=== PATIENT | male | born 1955 | race African-American/Black ===

== ENCOUNTER → 2016-08-12 | Outpatient (CLI) | payer OTHER ==
--- NOTE | 2016-08-12 15:22 | CARD ---
APPROVED REPORT EXAM: Two-dimensional and M-mode echocardiogram with Doppler and color Doppler. Other Information Quality : Good INDICATION ICD: Cardiomyopathy 2D DIMENSIONS RVDd3.6 (2.9-3.5cm)Left Atrium(2D)4.1 (1.6-4.0cm) IVSd0.8 (0.7-1.1cm)Aortic Root(2D)2.9 (2.0-3.7cm) LVDd5.7 (3.9-5.9cm)LVOT Diameter2.4 (1.8-2.4cm) PWd0.9 (0.7-1.1cm)LVDs4.4 (2.5-4.0cm) FS (%) 20.0 %SV74.0 ml LVEF(%)40.0 (>50%) Aortic Valve AoV Peak Gonzalo.109.2cm/sAoV VTI20.7cm AO Peak GR.4.8mmHgLVOT Peak Gonzalo.96.4cm/s LVOT VTI 18.81cmAO Mean GR.3mmHg SABRINA (VMAX)3.58vo3BYX (VTI)3.96cm2 Mitral Valve MV E Rwvznrbc90.9cm/sMV DECEL WUAL471fg MV A Mzinclwv60.4cm/sE/A Ratio0.8 Tricuspid Valve TR P. Ffwzltqj521mw/sRAP ZFAPGGHN1joJe TR Peak Gr.20fhLeZMCC57ygCx LEFT VENTRICLE The left ventricle is normal size. There is normal left ventricular wall thickness. Severe left ventr icular systolic dysfunction. The Ejection Fraction is 25-30%. There is akinesis in the apex, mid to d istal septal and distal lateral couch. Transmitral Doppler flow pattern is Grade I-abnormal relaxatio n pattern. RIGHT VENTRICLE The right ventricle is mildly dilated. The right ventricular systolic function is normal. There is a pacemaker/ICD lead in the right ventricle. ATRIA The left atrium is mildly dilated. The right atrium is mildly dilated. A pacemaker/ICD is seen in the right atrium consistent with history. The interatrial septum is intact with no evidence for an atria l septal defect or patent foramen ovale as noted on 2-D or Doppler imaging. AORTIC VALVE The aortic valve is calcified but opens well. Doppler and Color Flow revealed no significant aortic r egurgitation. There is no significant aortic valvular stenosis. MITRAL VALVE The mitral valve is normal in structure and function. There is no evidence of mitral valve prolapse. There is no mitral valve stenosis. Doppler and Color-flow revealed mild mitral regurgitation. TRICUSPID VALVE The tricuspid valve is normal in structure and function. Doppler and Color Flow revealed mild to mode rate tricuspid regurgitation. There is no pulmonary hypertension. The PA pressure was estimated at 26 mmHg. There is no tricuspid valve stenosis. PULMONIC VALVE The pulmonary valve is normal in structure and function. Doppler and Color Flow revealed no pulmonic valvular regurgitation. There is no pulmonic valvular stenosis. GREAT VESSELS The aortic root is normal in size. The ascending aorta is normal in size. The IVC is normal in size a nd collapses >50% with inspiration. PERICARDIAL EFFUSION There is no evidence of significant pericardial effusion. Critical Notification Critical Value: No <Conclusion> Severe left ventricular systolic dysfunction. The Ejection Fraction is 25-30%. Transmitral Doppler flow pattern is Grade I-abnormal relaxation pattern. A pacemaker/ICD is seen in the right atrium consistent with history. Mild mitral regurgitation. Mild to moderate tricuspid regurgitation. There is no evidence of significant pericardial effusion.
== END | disposition home or self-care (01) ==
LOC: ECHO 07:56
PROVIDERS: ATTEND Internal Medicine Cardiovascular Disease
DX: I08.1 Rheumatic disorders of both mitral and tricuspid valves (principal); I25.5 Ischemic cardiomyopathy
CPT/HCPCS: 93306

== ENCOUNTER → 2018-10-05 | Outpatient (CLI) | payer OTHER ==
--- NOTE | 2018-10-05 17:41 | CARD ---
MR#: [id number] Date of Study: 10/05/2018 Ordering Physician: LUISA STONER, Referring Physician: LUISA STONER, Tech: Kaity Aguirre APPROVED REPORT EXAM: Two-dimensional and M-mode echocardiogram with Doppler and color Doppler. Other Information Quality : AverageHR: 65bpm Rhythm : Pacemaker INDICATION Cardiomyopathy Surgery/Intervention Pacemaker: Date: 2012 CABG: Date: 2011 RISK FACTORS Hyperlipidemia 2D DIMENSIONS Left Atrium(2D)4.8 (1.6-4.0cm)IVSd1.3 (0.7-1.1cm) Aortic Root(2D)3.1 (2.0-3.7cm)LVDd6.7 (3.9-5.9cm) LVOT Diameter2.2 (1.8-2.4cm)PWd1.0 (0.7-1.1cm) LVDs4.7 (2.5-4.0cm)FS (%) 30.5 % SV133.2 mlLVEF(%)56.6 (>50%) Aortic Valve AoV Peak Gonzalo.132.8cm/sAoV VTI28.3cm AO Peak GR.7.1mmHgLVOT Peak Gonzalo.109.2cm/s LVOT VTI 23.52cmAO Mean GR.4mmHg SABRINA (VMAX)3.62ym8AQR (VTI)3.07cm2 Mitral Valve MV E Xrdymzxm64.2cm/sMV DECEL IUGO359gv MV A Utlcxtps83.8cm/sE/A Ratio1.2 Pulmonary Valve PV Peak Gebyvxhs068.6cm/sPV Peak Grad.6mmHg Tricuspid Valve TR P. Ocjyjzqu368on/sRAP HOOOUCPY5hhBb TR Peak Gr.98bmWwQLOH42syAd Pulmonary Vein S1 Oinnwreo80.7cm/sD2 Hcgwtfhg84.4cm/s LEFT VENTRICLE The Left Ventricle is moderately dilated. There is mild to moderate concentric left ventricular hyper trophy. The systolic function is moderately impaired. EF 30-35% There is global hypokinesis of the le ft ventricle. Septal motion suggestive of conduction defect. Transmitral Doppler flow pattern is Grad e II-pseudonormal filling dynamics. RIGHT VENTRICLE The right ventricle is normal size. There is normal right ventricular wall thickness. The right ventr icular systolic function is normal. Pacer/ICD lead noted in the RV/RA ATRIA The left atrium is borderline dilated. The right atrium size is normal. There is a pacemaker lead see n in the right atrium. The interatrial septum is intact with no evidence for an atrial septal defect or patent foramen ovale as noted on 2-D or Doppler imaging. AORTIC VALVE The aortic valve is normal in structure and function. Doppler and Color Flow revealed no significant aortic regurgitation. There is no significant aortic valvular stenosis. MITRAL VALVE The mitral valve is normal in structure and function. There is no evidence of mitral valve prolapse. There is no mitral valve stenosis. Doppler and Color-flow revealed trace to mild mitral regurgitation . TRICUSPID VALVE The tricuspid valve is normal in structure and function. Doppler and Color Flow revealed trace to mil d tricuspid regurgitation with an estimated PAP of 26 mmHg. There is no tricuspid valve stenosis. PULMONIC VALVE Doppler and Color Flow revealed trace pulmonic valvular regurgitation. There is no pulmonic valvular stenosis. GREAT VESSELS The aortic root is normal in size. The IVC was not well visualized. PERICARDIAL EFFUSION There is no evidence of significant pericardial effusion. Critical Notification Critical Value: No <Conclusion> The Left Ventricle is moderately dilated. The systolic function is moderately impaired. EF 30-35% There is global hypokinesis of the left ventricle. Septal motion suggestive of conduction defect. Pacer/ICD lead noted in the RV/RA Signed by : Vincent Cosby, Electronically Approved : 10/05/2018 17:40:32
== END | disposition home or self-care (01) ==
LOC: ECHO 13:39
PROVIDERS: ATTEND Internal Medicine Cardiovascular Disease
DX: I08.1 Rheumatic disorders of both mitral and tricuspid valves (principal); I25.5 Ischemic cardiomyopathy; E78.5 Hyperlipidemia, unspecified
CPT/HCPCS: 93306

== ENCOUNTER 2019-09-27 23:29 | Observation (INO) | payer OTHER ==
[~2019-09-27] VITALS: Ht 175.3 cm; Wt 85.2 kg
--- NOTE | 2019-09-27 23:40 | PHYS DOC ---
Past History Past Medical History: CAD Past Surgical History Bypass surgery in 2012, AICD pacer Smoking: Non-smoker Alcohol Use: Rarely Drug Use: None General Adult EDM: Chief Complaint: CHEST PAIN HPI: HPI: Patient is a 64 year old male who presents for evaluation of chest pain and chest pressure that started 30 minutes prior to arrival at rest. He had some shortness of air as well. Local EMS brought patient in and he was given a full dose aspirin prior to arrival. Shortly after arrival he was chest pain-free. Patient does have history of heart disease. Patient had open heart surgery in [address] [facility]. Arroyo is his surgeon. Patient denied complaints of shortness of air, sweats or other findings Review of Systems: Review of Systems: Constitutional: Denies fever or chills Eyes: Denies change in visual acuity HENT: Denies nasal congestion or sore throat Respiratory: Denies cough or shortness of breath Cardiovascular: Has chest pain but no edema GI: Denies abdominal pain, nausea, vomiting, bloody stools or diarrhea : Denies dysuria Musculoskeletal: Denies back pain or joint pain Integument: Denies rash Neurologic: Denies headache, focal weakness or sensory changes Endocrine: Denies polyuria or polydipsia Lymphatic: Denies swollen glands Psychiatric: Denies depression or anxiety Heart Score: Risk Factors: Risk Factors: DM, Current or recent (<one month) smoker, HTN, HLP, family history of CAD, obesity. Risk Scores: Score 0 - 3: 2.5% MACE over next 6 weeks - Discharge Home Score 4 - 6: 20.3% MACE over next 6 weeks - Admit for Clinical Observation Score 7 - 10: 72.7% MACE over next 6 weeks - Early Invasive Strategies Physical Exam: PE: Constitutional: Well developed, well nourished, moderate distress. [] HENT: Normocephalic, atraumatic, bilateral external ears normal, oropharynx moist, no oral exudates, nose normal. [] Eyes: PERRL, EOMI, conjunctiva normal, no discharge. [] Neck: Normal range of motion, no tenderness, supple, no stridor. [] Cardiovascular:Heart rate regular rhythm, murmur [] Lungs & Thorax: Bilateral breath sounds clear to auscultation [] Abdomen: Bowel sounds normal, soft, no tenderness, no masses, no pulsatile masses. [] Skin: Warm, dry, no erythema, no rash. [] Back: No tenderness. [] Extremities: No tenderness, no cyanosis, no clubbing, ROM intact, no edema. [] Neurologic: Alert and oriented X 3, normal motor function, normal sensory function, no focal deficits noted. [] Psychologic: Affect normal, judgement normal, mood normal. [] Current Patient Data: Labs: Laboratory Tests Test 09/27/19 23:33 White Blood Count 4.2 x10^3/uL Red Blood Count 4.20 x10^6/uL Hemoglobin 13.7 g/dL Hematocrit 40.9 % Mean Corpuscular Volume 97 fL Mean Corpuscular Hemoglobin 33 pg Mean Corpuscular Hemoglobin Concent 34 g/dL Red Cell Distribution Width 13.6 % Platelet Count 170 x10^3/uL Neutrophils (%) (Auto) 40 % Lymphocytes (%) (Auto) 45 % Monocytes (%) (Auto) 10 % Eosinophils (%) (Auto) 4 % Basophils (%) (Auto) 1 % Neutrophils # (Auto) 1.7 x10^3uL Lymphocytes # (Auto) 1.9 x10^3/uL Monocytes # (Auto) 0.4 x10^3/uL Eosinophils # (Auto) 0.2 x10^3/uL Basophils # (Auto) 0.0 x10^3/uL Sodium Level 141 mmol/L Potassium Level 3.9 mmol/L Chloride Level 104 mmol/L Carbon Dioxide Level 27 mmol/L Anion Gap 10 Blood Urea Nitrogen 18 mg/dL Creatinine 1.2 mg/dL Estimated GFR (Cockcroft-Gault) 73.8 BUN/Creatinine Ratio 15 Glucose Level 153 mg/dL Calcium Level 8.8 mg/dL Total Bilirubin 0.6 mg/dL Aspartate Amino Transf (AST/SGOT) 136 U/L Alanine Aminotransferase (ALT/SGPT) 89 U/L Alkaline Phosphatase 78 U/L Troponin I Quantitative < 0.017 ng/mL Total Protein 7.3 g/dL Albumin 3.7 g/dL Albumin/Globulin Ratio 1.0 EKG: EKG: EKG was read at 2334 showed sinus rhythm rate 85, some ST segment elevation in the anterior leads with inverted T waves in the lateral leads. Looking for old EKG now for comparison 2341 old EKG not available from 03/16/2018. The elevations in V2 and V3 and the lateral inversions in 1, aVL, V4 V5 and V6 are old. Patient does not have an obvious STEMI today [] Radiology/Procedures: Radiology/Procedures: CXR read by me showed no acute findings.[] [address] [address] IMAGING REPORT Signed PATIENT: ROBBY INMAN ACCOUNT: [id number] : 1955 LOCATION: ER AGE: 64 SEX: M EXAM STATUS: REG ER ORD. PHYSICIAN: ANTONIA HAGER DO REASON: chest pain PROCEDURE: PORTABLE CHEST 1V EXAM: CHEST ONE VIEW. HISTORY: Chest pain. COMPARISON: 07/01/11. FINDINGS: A frontal view of the chest is obtained. There are changes of coronary artery bypass grafting. A left-sided pacer/defibrillator has its leads in the right atrium and right ventricle. There are no confluent infiltrates. There is no pneumothorax or pleural effusion. The heart is mildly enlarged. IMPRESSION: 1. Mild cardiomegaly. Electronically signed by: Car Mondragon MD (09/28/2019 1:17 AM) [facility] DICTATED AND SIGNED BY: LIZZ MONDRAGON MD DATE: 09/28/19116 CC: ROLAND LOGAN; ANTONIA HAGER DO ~ Course & Med Decision Making: Course & Med Decision Making Pertinent Labs and Imaging studies reviewed. (See chart for details) [] Dragon Disclaimer: Dragon Disclaimer: This electronic medical record was generated, in whole or in part, using a voice recognition dictation system. 0120 chest pain-free at this time. Case was discussed with Dr. Wang the hospitalist long chain quiller tender. Will admit here for observation to this facility and get cardiology consult in the morning. Initial troponin and EKG were unremarkable. Departure Departure: Impression: Primary Impression: Precordial chest pain Disposition: ADMITTED INPATIENT Admitting Physician: Kenrick Wang Condition: STABLE Referrals: ROLAND LOGAN (PCP) Justification of Admission: Justification of Admission: Justification of Admission Dx: Yes Angina: Symp at Rest ANTONIA HAGER DO Sep 27, 2019 23:40
--- NOTE | 2019-09-27 23:42 | EKG ---
[address] [address] Test Date: 2019-09-27 Test Time: 23:31:33 Pat Name: ROBBY INMAN Department: Room: Gender: M Heat Treat Technician: : 1955 Requested By: ANTONIA HAGER Order Number: [id number] Reading MD: Measurements Intervals [place] Rate: 85 P: -1 [place]: 136 QRS: 52 QRSD: 108 T: 103 QT: 372 QTc: 448 Interpretive Statements SINUS RHYTHM LEFT ATRIAL ABNORMALITY R-S TRANSITION ZONE IN V LEADS DISPLACED TO THE LEFT LOW LIMB LEAD VOLTAGE T ABNORMALITY IN ANTEROLATERAL LEADS ABNORMAL ECG RI6.02 No previous ECG available for comparison
[2019-09-27 23:50] LABS: BASO % 1 % (0-3); EOS # 0.2 x10^3/uL (0.0-0.7); EOS % 4 % (0-3); HEMATOCRIT 40.9 % (39.0-53.0); HEMOGLOBIN 13.7 g/dL (13.0-17.5); LYMPH # 1.9 x10^3/uL (1.0-4.8); LYMPH % 45 % (24-48); MEAN CORPUSCULAR HEMOGLOBIN 33 pg (25-35); MEAN CORPUSCULAR HGB CONC 34 g/dL (31-37); MEAN CORPUSCULAR VOLUME 97 fL (79-100); MONO # 0.4 x10^3/uL (0.0-1.1); MONO % 10 % (0-9); NEUT # 1.7 x10^3uL (1.8-7.7); NEUT % 40 % (31-73); PLATELET COUNT 170 x10^3/uL (140-400); RED CELL DISTRIBUTION WIDTH 13.6 % (11.5-14.5); WHITE BLOOD COUNT 4.2 x10^3/uL (4.0-11.0)
[2019-09-28] LABS: CALCIUM 8.8 mg/dL (8.5-10.1); CREATININE 1.2 mg/dL (0.7-1.3); GFR 73.8; POTASSIUM 3.9 mmol/L (3.5-5.1)
[2019-09-28 00:05] LABS: ALBUMIN 3.7 g/dL (3.4-5.0); TOTAL BILIRUBIN 0.6 mg/dL (0.2-1.0); TOTAL PROTEIN 7.3 g/dL (6.4-8.2)
--- NOTE | 2019-09-28 01:19 | RAD ---
EXAM: CHEST ONE VIEW. HISTORY: Chest pain. COMPARISON: 07/01/11. FINDINGS: A frontal view of the chest is obtained. There are changes of coronary artery bypass grafting. A left-sided pacer/defibrillator has its leads in the right atrium and right ventricle. There are no confluent infiltrates. There is no pneumothorax or pleural effusion. The heart is mildly enlarged. IMPRESSION: 1. Mild cardiomegaly. Electronically signed by: Car Mondragon MD (09/28/2019 1:17 AM) [facility]
[2019-09-28] MEDS ORDERED: ONDANSETRON PF 4 MG/2 ML VIAL. IVP PRN (01:45)
[2019-09-28 02:56] VITALS: BP 118/77
[2019-09-28] MEDS ORDERED: ASPI81TA59 PO (03:49)
[2019-09-28] MEDS ORDERED: POTA10TA32 PO (03:49)
[2019-09-28] MEDS ORDERED: DILT120C93 PO (03:49)
[2019-09-28] MEDS ORDERED: METO-239 PO (03:49)
[2019-09-28] MEDS ORDERED: ATOR20TA58 PO (03:49)
[2019-09-28] MEDS ORDERED: FURO40TA4 PO (03:49)
[2019-09-28] MEDS ORDERED: SILD100T59 PO (03:49)
[2019-09-28] MEDS ORDERED: AZEL137S3 NAS (03:49)
[2019-09-28] MEDS ORDERED: FEXO180T16 PO (03:49)
[2019-09-28] MEDS ORDERED: MORPHINE SULFATE 2 MG/ML DISP.SYRIN. IV PRN (04:00)
[2019-09-28 05:15] VITALS: BP 117/72
--- NOTE | 2019-09-28 07:59 | PDOC2 ---
CARDIAC CONSULT DATE OF CONSULT Date Of Consult DATE: 09/28/19 TIME: 07:50 REASON FOR CONSULT Reason for Consult Chest pain REFERRING PHYSICIAN Referring Physician Ho SOURCE Source: Chart review, Patient HPI History of Present Illness This is a 64 yo male who presented secondary to chest pain. Patient reports he laid down to bed last night and develop "thumping" pain in his central chest. [place] slightly short of breath. No dizziness, diaphoresis, palpitations, or nausea/vomiting. Pain last a couple of minutes so he called EMS. Pain was intermittent. No specific worsening or precipitating factors. Pain resolved overnight following morphine and has not return. Feels well this morning. Patient has a history of CAD s/p CABG with RAYMUNDO to LAD in 2012 and ICM. Heart cath 08/2017 with patent RAYMUNDO to LAD. No lesions needing intervention were i dentified. Patient exercises daily without any experience of chest pain. PAST MEDICAL HISTORY Cardiovascular: CAD, CHF, HTN, hyperipidemia PAST SURGICAL HISTORY Past Surgical History: CABG, Tonsillectomy, Other (vasectomy ) FAMILY HISTORY Family History: Coronary Artery Disease SOCIAL HISTORY Smoke: No ALCOHOL: none Drugs: None Lives: with Family CURRENT MEDICATIONS Current Medications Current Medications Ondansetron HCl (Zofran) 4 mg PRN Q4HRS PRN IVP NAUSEA/VOMITING; Start 09/28/19 at 01:45; Stop 09/29/19 at 01:44 Morphine Sulfate (Morphine 2mg Syringe) 2 mg PRN Q2HR PRN IV PAIN Last administered on 09/28/19at 04:55; Start 09/28/19 at 04:00 Active Scripts Active Reported Children's Aspirin (Aspirin) 81 Mg Tab.chew 81 Mg PO DAILY LAST DOSE GIVEN: DATE: TIME: NEXT DOSE DUE: DATE: TIME: Furosemide 40 Mg Tablet 40 Mg PO PRN DAILY PRN LAST DOSE GIVEN: DATE: TIME: NEXT DOSE DUE: DATE: TIME: Tiazac (Diltiazem Hcl) 120 Mg Capsule.er 120 Mg PO DAILY LAST DOSE GIVEN: DATE: TIME: NEXT DOSE DUE: DATE: TIME: Potassium Chloride 10 Meq Tab.er.prt 10 Meq PO DAILY LAST DOSE GIVEN: DATE: TIME: NEXT DOSE DUE: DATE: TIME: Atorvastatin Calcium 20 Mg Tablet 20 Mg PO HS LAST DOSE GIVEN: DATE: TIME: NEXT DOSE DUE: DATE: TIME: Fexofenadine Hcl 180 Mg Tablet 180 Mg PO DAILY LAST DOSE GIVEN: DATE: TIME: NEXT DOSE DUE: DATE: TIME: Azelastine Hcl 137 Mcg/0.137 Ml [place].pump 2 Sprays LUDY PRN PRN LAST DOSE GIVEN: DATE: TIME: NEXT DOSE DUE: DATE: TIME: Metoprolol Succinate ( Xl ) (Metoprolol Succinate) 25 Mg Tab.er.24h 25 Mg PO DAILY LAST DOSE GIVEN: DATE: TIME: NEXT DOSE DUE: DATE: TIME: Sildenafil Citrate 100 Mg Tablet 100 Mg PO PRN PRN LAST DOSE GIVEN: DATE: TIME: NEXT DOSE DUE: DATE: TIME: ALLERGIES Allergies: Coded Allergies: lisinopril (Verified Allergy, Unknown, 09/28/19) ROS Review of Systems 14 point ROS conducted with pertinent positives noted above in HPI PHYSICAL EXAM General: Alert, Oriented X3, Cooperative, No acute distress HEENT: Atraumatic, Mucous membr. moist/pink Lungs: Clear to auscultation Heart: Regular rate, Normal S1, Normal S2 Abdomen: Soft, No tenderness Extremities: No edema, Normal pulses Skin: No breakdown Neuro: Normal speech, Sensation intact Psych/Mental Status: Mental status NL, Mood NL MUSCULOSKELETAL: Osteoarthritic changes both hands VITALS Vital Signs Vital Signs Date Time Temp Pulse Resp B/P (MAP) Pulse Ox O2 Delivery O2 Flow Rate FiO2 09/28/19 05:20 16 Room Air 09/28/19 05:15 98.4 75 117/72 (87) 97 LABS LABS Laboratory Tests Test 09/27/19 23:33 09/28/19 04:50 White Blood Count 4.2 x10^3/uL (4.0-11.0) Red Blood Count 4.20 x10^6/uL (4.30-5.70) Hemoglobin 13.7 g/dL (13.0-17.5) Hematocrit 40.9 % (39.0-53.0) Mean Corpuscular Volume 97 fL (79-100) Mean Corpuscular Hemoglobin 33 pg (25-35) Mean Corpuscular Hemoglobin Concent 34 g/dL (31-37) Red Cell Distribution Width 13.6 % (11.5-14.5) Platelet Count 170 x10^3/uL (140-400) Neutrophils (%) (Auto) 40 % (31-73) Lymphocytes (%) (Auto) 45 % (24-48) Monocytes (%) (Auto) 10 % (0-9) Eosinophils (%) (Auto) 4 % (0-3) Basophils (%) (Auto) 1 % (0-3) Neutrophils # (Auto) 1.7 x10^3uL (1.8-7.7) Lymphocytes # (Auto) 1.9 x10^3/uL (1.0-4.8) Monocytes # (Auto) 0.4 x10^3/uL (0.0-1.1) Eosinophils # (Auto) 0.2 x10^3/uL (0.0-0.7) Basophils # (Auto) 0.0 x10^3/uL (0.0-0.2) Sodium Level 141 mmol/L (136-145) Potassium Level 3.9 mmol/L (3.5-5.1) Chloride Level 104 mmol/L (98-107) Carbon Dioxide Level 27 mmol/L (21-32) Anion Gap 10 (6-14) Blood Urea Nitrogen 18 mg/dL (8-26) Creatinine 1.2 mg/dL (0.7-1.3) Estimated GFR (Cockcroft-Gault) 73.8 BUN/Creatinine Ratio 15 (6-20) Glucose Level 153 mg/dL (70-99) Calcium Level 8.8 mg/dL (8.5-10.1) Total Bilirubin 0.6 mg/dL (0.2-1.0) Aspartate Amino Transf (AST/SGOT) 136 U/L (15-37) Alanine Aminotransferase (ALT/SGPT) 89 U/L (16-63) Alkaline Phosphatase 78 U/L (46-116) Troponin I Quantitative < 0.017 ng/mL (0-0.055) < 0.017 ng/mL (0-0.055) Total Protein 7.3 g/dL (6.4-8.2) Albumin 3.7 g/dL (3.4-5.0) Albumin/Globulin Ratio 1.0 (1.0-1.7) ECHOCARDIOGRAM Echocardiogram <Conclusion> The Left Ventricle is moderately dilated. The systolic function is moderately impaired. EF 30-35% There is global hypokinesis of the left ventricle. Septal motion suggestive of conduction defect. Pacer/ICD lead noted in the RV/RA DATE: 10/05/18 1740 HEART CATH Heart Cath FINDINGS 1. Hemodynamics: Left ventricular end-diastolic pressure 15 mmHg. No pullback gradient across the aortic valve. 2. Left ventriculography: Severe left radical systolic dysfunction with ejection fraction estimated at 25%. No significant mitral regurgitation seen. 3. Coronary and bypass graft angiography: a. The left main coronary artery arose from the left sinus of Valsalva, gave rise to the left anterior descending and left circumflex arteries and did not show any significant stenosis. b. The left anterior descending artery showed chronic total occlusion in the midsegment. c. The left circumflex artery did not show any significant stenosis. d. The right coronary artery was a large and dominant vessel arising from the right sinus of Valsalva that did not show any significant stenosis. e. The left internal mammary artery graft to the left anterior descending artery did not show any significant stenosis. Distal to the anastomosis, the hoh left anterior descending artery did not show any significant stenosis. Conclusion 1. 100% chronic total occlusion of the left anterior descending artery with patent left internal mammary artery graft to the left anterior descending artery and without any significant stenosis in the left circumflex artery right coronary arteries. 2. Severe left ventricle systolic dysfunction with ejection fraction estimated at 25%. Recommendations Medical Therapy DATE: 03/16/18 1039 ASSESSMENT/PLAN Assessment/Plan 1. Chest pain, atypical. AMI ruled out. 2. CAD s/p CABG; Cath 08/2017 with patent RAYMUNDO to LAD 3. Hypertension; controlled 4. Hyperlipidemia; statin 5. Chronic systolic CHF with ICM s/p AICD ([employer]). LVEF 30-35% (09/29). Clinically compensated 6. Elevated LFTs 7. Allergy to ACEi; angioedema Recommendations Lipids Resume secondary prevention measures Hold statin with elevated LFTs Will arrange outpatient stress test and echocardiogram Follow up in our office with Dr. Guevara as scheduled. REGI PATTERSON APRN Sep 28, 2019 07:59
[2019-09-28] MEDS ORDERED: FUROSEMIDE 40 MG TABLET PO PRN (08:45)
[2019-09-28] MEDS ORDERED: POTASSIUM CHLORIDE 10 MEQ TABLET.ER. PO SCH (09:00)
[2019-09-28] MEDS ORDERED: METOPROLOL SUCC 24HR ER 25 MG TAB.ER.24H. PO SCH (09:00)
[2019-09-28] MEDS ORDERED: CETIRIZINE HCL 10 MG TABLET PO SCH (09:00)
[2019-09-28] MEDS ORDERED: DILTIAZEM HCL 120 MG PO SCH (09:00)
[2019-09-28] MEDS ORDERED: NON FORMULARY ITEM (Fexofenadine Hcl 180 MG) PO SCH (09:00)
[2019-09-28] MEDS ORDERED: ASPIRIN CHEWABLE 81 MG TABLET. PO SCH (09:00)
[2019-09-28 11:33] VITALS: BP 147/86
[2019-09-28] MEDS ORDERED: NITR0.4T22 SL (12:52)
[2019-09-28] MEDS ORDERED: PANT40TA3 PO (12:53)
--- NOTE | 2019-09-28 13:30 | SSS ---
ADMIT DATE: 09/28/2019 HISTORY OF PRESENT ILLNESS: The patient is a 64-year-old -[place] male patient who presented to the Emergency Room with complaint of chest pain. The patient reported that he has laid down to bed last night and developed thumping pain in his central chest, felt slightly short of breath, no dizziness, no diaphoresis, no palpitation, no nausea or vomiting. Pain lasted a couple of minutes, so he called EMS. The pain was intermittent, no specific worsening or precipitating factor. Pain was resolved overnight following morphine and has not returned. He was evaluated in the Emergency Room of [facility] and his EKG showed that he was in sinus rhythm at a rate of 85 beats per minute, some ST segment elevation in anterior leads with inverted T waves in the lateral leads. He had a repeat EKG, again showed elevation in V2 and V3 and the lateral inversion of I, aVL, V4, V5, V6 are old. His first set of cardiac enzyme was less than 0.017 and therefore, the patient was admitted, has had 2 more sets of cardiac enzymes that all were less than 0.017. He was seen in consultation by the Cardiology team and given that his chest pain was atypical an acute myocardial infarction ruled out. A decision was made to discharge him home with an arrangement for an outpatient stress test and echocardiogram. He will be seen at Dr. Borrego's office. PAST MEDICAL HISTORY: Significant for coronary artery disease, congestive heart failure, hypertension, hyperlipidemia. PAST SURGICAL HISTORY: Significant for coronary artery bypass graft surgery with RAYMUNDO to left anterior descending in 2012. He has ischemic cardiomyopathy. His heart catheterization in August 2017 with patent RAYMUNDO to LAD. No lesions at that time needing intervention identified. The patient exercises daily without any experience of chest pain. Significant for coronary artery bypass graft surgery, tonsillectomy, vasectomy and left heart catheterization. FAMILY HISTORY: Positive for coronary artery disease. SOCIAL HISTORY: He is , lives with his . He does not smoke, drink alcohol, or using recreational drugs. ALLERGIES: HE IS ALLERGIC TO LISINOPRIL. MEDICATIONS: He is currently on following medications: He is on fexofenadine 180 mg daily, atorvastatin 20 mg at bedtime, sildenafil 100 mg daily for erectile dysfunction, metoprolol succinate 25 mg daily, diltiazem 120 mg daily, aspirin 81 mg once a day, potassium chloride 10 mEq once a day, furosemide 40 mg daily as needed. He is on azelastine 2 sprays to each nostril daily as needed for dry nose. REVIEW OF SYSTEMS: As per history of present illness. PHYSICAL EXAMINATION: GENERAL: On examining him, he looked well and was clearly in no apparent respiratory distress. No pallor, jaundice, cyanosis or thyromegaly. No jugular venous distention or limb edema. VITAL SIGNS: His heart rate was 74, blood pressure 147/86, temperature was 98, respiratory rate was 16, and oxygen saturation was 93% on room air. HEAD, EYES, EARS, NOSE AND THROAT: Showed normocephalic, atraumatic. NECK: Supple. HEART: Showed normal first and second heart sounds. No gallop or murmur. CHEST: Clear to auscultation. No crepitation or rhonchi. ABDOMEN: Slightly distended, soft, nontender. NEUROLOGIC: He was grossly intact. LABORATORY DATA: Showed a white cell count 4200, hemoglobin 13.7, hematocrit 41, MCV 97 and platelet count of 170,000. The manual differential showed 40% polymorphs, 45% lymphocytes, 10% monocytes. His serum sodium was 141, potassium 3.9, chloride 104, bicarbonate 27, anion gap of 10, BUN 18, creatinine 1.2, estimated GFR was 74 mL per minute. His glucose was 153, calcium was 8.8. Total bilirubin and alkaline phosphatase were normal. AST and ALT were elevated at 136 and 89, total protein was 7.3, albumin 3.7. He has 3 sets of cardiac enzymes, showed troponin to be less than 0.017. His chest x-ray showed that the patient has changes of coronary artery bypass graft, left sided pacer defibrillator has its leads in the right atrium and right ventricle. There are no confluent infiltrate. There is no pneumothorax, pleural effusion. The heart is mildly enlarged. ASSESSMENT AND PLAN: The patient was discharged home to continue on nitroglycerin 0.4 mg sublingually every 5 minutes, Protonix 40 mg once a day, aspirin 81 mg once a day, azelastine 2 sprays to each nostril as needed, diltiazem 120 mg daily, fexofenadine 180 mg once a day, furosemide 40 mg p.o. daily p.r.n. for her congestive heart failure, metoprolol succinate 25 mg daily, potassium chloride 10 mEq once a day, sildenafil citrate 100 mg p.o. p.r.n. for erectile dysfunction, atorvastatin calcium was put on hold given his elevated liver enzyme. FINAL DISCHARGE DIAGNOSES: 1. Chest pain, atypical, acute myocardial infarction ruled out. 2. Coronary artery disease, status post coronary artery bypass graft, catheterization in August 2017 showed patent RAYMUNDO to LAD. Hypertension, well controlled. Hyperlipidemia, on statins. Chronic systolic congestive heart failure, ejection fraction with ischemic cardiomyopathy, status post ICD [employer]; left ventricular ejection fraction was 30-35%. Elevated liver enzymes. ALLERGIES TO VERNON INHIBITORS due to angioedema. Plan is to resume his secondary prevention measures. Hold statin due to elevated LFTs. Arrangement was made for him to have an outpatient stress test and echocardiogram. The patient did complain of increased burping and acid reflux, we will start him on Protonix. He also wanted nitroglycerin; however, I told him that he has to be careful and they should not take it with the sildenafil and should follow with Dr. Borrego's office as scheduled for outpatient stress test and echocardiogram. BHARAT DE LA CRUZ MD DR: WENDY/gabriela JOB#: [id number] / [id number]
== END 2019-09-28 14:00 | disposition home or self-care (01) ==
LOC: ER 23:29 → 1 SOUTH 09-28 01:32
PROVIDERS: ADMIT Hospitalist; ATTEND Hospitalist
DX: R07.89 Other chest pain (principal); I25.10 Atherosclerotic heart disease of native coronary artery without angina pectoris; I11.0 Hypertensive heart disease with heart failure; I50.9 Heart failure, unspecified; E78.5 Hyperlipidemia, unspecified; R79.89 Other specified abnormal findings of blood chemistry; T78.3XXA Angioneurotic edema, initial encounter; E66.9 Obesity, unspecified; Z90.49 Acquired absence of other specified parts of digestive tract; Z95.1 Presence of aortocoronary bypass graft; Z68.27 Body mass index [BMI] 27.0-27.9, adult; Z95.810 Presence of automatic (implantable) cardiac defibrillator
CPT/HCPCS: 36415; 71045; 80053; 80061; 84484; 85025; 93005; 96374; 99285; G0378; J2270; G0379

== ENCOUNTER → 2019-11-01 | Outpatient (CLI) | payer OTHER ==
[~2019-11-01] MED LIST: ASPI81TA59 PO; ATOR20TA58 PO; AZEL137S3 NAS; DILT120C93 PO; FEXO180T16 PO; FURO40TA4 PO; METO-239 PO; NITR0.4T22 SL; PANT40TA3 PO; POTA10TA32 PO; SILD100T59 PO
--- NOTE | 2019-11-01 16:18 | CARD ---
MR#: [id number] Date of Study: 11/01/2019 Ordering Physician: LUISA BORREGO, Referring Physician: LUISA BORREGO, Tech: Lise Yanes RDCS APPROVED REPORT EXAM: Two-dimensional and M-mode echocardiogram with Doppler and color Doppler. Other Information Quality : Good INDICATION Chest Pain Ischemic Cardiomyopathy Surgery/Intervention ICD/Pacemaker: Date: 2012 CABG: Date: 2011 2D DIMENSIONS RVDd3.1 (2.9-3.5cm)Left Atrium(2D)5.5 (1.6-4.0cm) IVSd0.9 (0.7-1.1cm)Aortic Root(2D)3.0 (2.0-3.7cm) LVDd6.8 (3.9-5.9cm)LVOT Diameter2.3 (1.8-2.4cm) PWd0.9 (0.7-1.1cm)LVDs6.0 (2.5-4.0cm) FS (%) 10.0 %SV6.6 ml Aortic Valve AoV Peak Gonzalo.111.6cm/sAoV VTI20.5cm AO Peak GR.5.0mmHgLVOT Peak Gonzalo.93.7cm/s LVOT VTI 15.99cmAO Mean GR.3mmHg SABRINA (VMAX)3.09rr8CIK (VTI)3.27cm2 Mitral Valve MV E Cmbyhwbu46.7cm/sMV DECEL [id number] MV A Ezzuboch60.2cm/sE/A Ratio1.4 Tricuspid Valve TR P. Bsjnzjhj782fg/sRAP CKRFRRNY7sjEk TR Peak Gr.10iuMeABDK54fbWc Pulmonary Vein S1 Wmxhwjim28.8cm/sD2 Vqpbjtpi93.1cm/s LEFT VENTRICLE The Left Ventricle is moderately dilated. There is normal left ventricular wall thickness. Left ventr icle systolic function is severely impaired. The Ejection Fraction is 25-30%. There is severe global hypokinesis of the left ventricle. RIGHT VENTRICLE The right ventricle is normal size. The right ventricular systolic function is normal. There are pavan ce leads in the right ventricle and atrium. ATRIA The left atrium is moderately dilated. The right atrium size is normal. The interatrial septum is int act with no evidence for an atrial septal defect or patent foramen ovale as noted on 2-D or Doppler i maging. AORTIC VALVE The aortic valve is calcified but opens well. Doppler and Color Flow revealed no significant aortic r egurgitation. There is no significant aortic valvular stenosis. MITRAL VALVE The mitral valve is calcified but opens well. There is no evidence of mitral valve prolapse. There is no mitral valve stenosis. Doppler and Color-flow revealed mild mitral regurgitation. TRICUSPID VALVE The tricuspid valve is normal in structure and function. Doppler and Color Flow revealed mild tricusp id regurgitation. The PA pressure was estimated at 33 mmHg. There is no tricuspid valve stenosis. PULMONIC VALVE The pulmonary valve is normal in structure and function. Doppler and Color Flow revealed trace pulmon ic valvular regurgitation. There is no pulmonic valvular stenosis. GREAT VESSELS The aortic root is normal in size. The ascending aorta is normal in size. The IVC is normal in size a nd collapses >50% with inspiration. PERICARDIAL EFFUSION There is no evidence of significant pericardial effusion. Critical Notification Critical Value: No <Conclusion> The Left Ventricle is moderately dilated. Left ventricle systolic function is severely impaired. The Ejection Fraction is 25-30%. There is severe global hypokinesis of the left ventricle. There are device leads in the right ventricle and atrium. Doppler and Color Flow revealed no significant aortic regurgitation. There is no significant aortic valvular stenosis. Doppler and Color-flow revealed mild mitral regurgitation. Doppler and Color Flow revealed mild tricuspid regurgitation. The PA pressure was estimated at 33 mmHg. Signed by : Luisa Borrego MD Electronically Approved : 11/01/2019 16:17:52
--- NOTE | 2019-11-01 16:55 | RAD ---
MR#: [id number] Date of Study: 11/01/2019 Ordering Physician: LUISA BORREGO, Referring Physician: YESY THOMPSON Tech: RT Ricki Payton) (N) APPROVED REPORT Test Type: Exercise Stress Nurse/Tech: RT Tata (Gin) (N) Test Indications: chest pain 1 month ago Cardiac History: CABG 2011, defibrillator Medications: see ehr Medical History: see ehr Resting ECG: sinus rhythm Resting Heart Rate: 79 bpm Resting Blood Pressure: 148/84mmHg Pretest Chest Pain: None Nurse/Tech Notes Consent: The procedure was explained to the patient in lay terms. Informed consent was witnessed. Harlan eout was entered into [employer]. History and Stress Test performed by RT Tata (Gin) (N) POST EXERCISE Target HR: Yes Max HR: 155 bpm 99% of Maximum Predicted HR: 156 bpm Exercise duration: 6:01 min:sec, Stage Exercise capacity: 7METs Max Blood Pressure: 157/77mmHg ST Change: Yes. INTERPRETATION Stress EKG Conclusion: The baseline EKG shows a sinus rhythm, LVH and nonspecific ST-T wave changes. The stress EKG shows inferior ST segment changes suggestive but not diagnostic of ischemia. The patient also had a 6 beat run of VT. Imaging Protocol IMAGE PROTOCOL: Rest Tc-99m/stress Tc-99m 1 day Rest: Stress: Viability: Radiopharm.Tc99m OceyiccfqKh28v Sestamibi Dose10.6mCi 32.1mCi Duration 15min. 10min. Img Date 11/01/2019 11/01/2019 Inj-Img Zeez29lhp. 60min. Post-Injection Exercise: 1 minute Rest Admin Site:IV - Right AntecubitalAdministrator: RT Tata (Gin)(N) Stress Admin Site: IV - Right AntecubitalAdministrator: RT Ricki Payton)(N) STRESS DATA End Diast. Vol.248.0mlAv. Heart Rate95.0bpm End Syst. Vol.160.0mlCO Index BSA8.4L/min Myocardial Wteu576.0gEject. Llqlxdgd30.0% Stress Rates Pk. Fill Rate1.80EDV/secLVtime Pk. Fill 90.63msec Pk. Empty Rate2.62ESV/secLVtime Pk. Iphba833.86msec 04/15 Pk. Fill1.09EDV/sec Stress Scores Regional WT0.00Summed WT26.00 Regional WM2.00Summed WM33.00 LV Perfusion The stress scans show a large apical defect. The rest scans show a large apical defect. 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 Wall Motion Left ventricular function shows severe hypokinesis at the apex with an ejection fraction of 41%. LV Perf. Quant 17 Seg. SSS27.00 17 Seg. SRS30.00 17 Seg. SDS4.00 Stress Defect Extent (% LAD)69.40Rest Defect Extent (% LAD)80.00Rev. Defect Extent (% LAD)53.80 Stress Defect Extent (% LCX) 23.80Rest Defect Extent (% LCX)22.50Rev. Defect Extent (% LCX)5.00 Stress Defect Extent (% RCA)30.00Rest Defect Extent (% RCA)52.20Rev. Defect Extent (% RCA)0.00 Stress Defect Extent (% BAY)51.10Rest Defect Extent (% BAY)57.60Rev. Defect Extent (% BAY)26.30 Conclusion 1. Good exercise tolerance. 2. Stress EKG suggestive but not diagnostic of ischemia. 3. 6 beat run of VT. 4. Nuclear imaging shows a previous apical infarct with some tammie-infarct ischemia. 5. Left ventricle left ventricular systolic function is mildly decreased with ejection fraction of 41 % and apical severe hypokinesis. 6. Moderate high risk Latricia treadmill nuclear stress test Signed by : Luisa Borrego MD Electronically Approved : 11/01/2019 16:55:29
== END | disposition home or self-care (01) ==
LOC: NM 07:26
PROVIDERS: ATTEND Internal Medicine Cardiovascular Disease
DX: I08.3 Combined rheumatic disorders of mitral, aortic and tricuspid valves (principal); I25.9 Chronic ischemic heart disease, unspecified; I25.2 Old myocardial infarction
CPT/HCPCS: 78452; 93017; 93306; A9500; 96376